=== PATIENT | male | born 1970 | race Two or more races ===

== ENCOUNTER 2023-08-17 05:54 | Day surgery (SDC) | payer OTHER ==
[2023-08-12 15:37] LABS: BILIRUBIN,URINE NEGATIVE (Neg); CLARITY,URINE CLOUDY (Clear); COLOR,URINE YELLOW (Yellow); GLUCOSE, URINE NEGATIVE (Neg); KETONES,URINE NEGATIVE (Neg); LEUKOCYTE ESTERASE ,URINE NEGATIVE (Neg); NITRITES, URINE NEGATIVE (Neg); OCCULT BLOOD,URINE NEGATIVE (Neg); PH,URINE 7.5 (4.8-8.0); PROTEIN,URINE NEGATIVE (Neg); UROBILINOGEN,URINE 0.2 E.U/dL (0.2-1.0)
[2023-08-12 15:40] LABS: BASOPHILS % (AUTO) 0.4 % (0-1); EOSINOPHILS # (AUTO) 0.1 X10'3 (0-0.9); EOSINOPHILS % (AUTO) 1.5 % (0-6); LYMPHOCYTES # (AUTO) 1.8 X10'3 (1.1-4.8); MEAN CORPUSCULAR HEMOGLOBIN 31.3 PG (27.0-31.0); MEAN CORPUSCULAR HGB CONC 33.5 g/dL (33.0-36.5); MEAN CORPUSCULAR VOLUME 93.4 FL (78-98); MEAN PLATELET VOLUME 9.9 FL (7.4-10.4); MONOCYTES # (AUTO) 0.6 X10'3 (0-0.9); MONOCYTES % (AUTO) 8.7 % (2-12); NEUTROPHILS # (AUTO) 4.6 X10'3 (1.8-7.7); NEUTROPHILS % (AUTO) 64.4 % (42-75); PRE OP HEMATOCRIT 43.6 % (42.0-52.0); PRE OP HEMOGLOBIN 14.6 g/dL (14.0-17.9); PRE OP PLATELET COUNT 165 X10'3 (140-440); PRE OP WHITE BLOOD COUNT 7.2 10'3 (4.8-10.8); RED BLOOD COUNT 4.67 X10'6 (4.70-6.10); RED CELL DISTRIBUTION WIDTH 12.7 % (11.5-14.5)
[2023-08-12 15:42] LABS: UA COLLECTION TYPE VOIDED
[2023-08-12 15:52] LABS: APTT 28 SECONDS (22-32); PROTHROMBIN TIME 10.5 SECONDS (9.0-12.0)
[2023-08-12 15:54] LABS: ALBUMIN 3.8 G/DL (3.4-5.0); ALBUMIN/GLOBULIN RATIO 0.9 (1.1-1.5); ALKALINE PHOSPHATASE 81 IU/L (46-116); BLOOD UREA NITROGEN 20 MG/DL (7-18); BUN/CREATININE RATIO 28.2 (10.0-20.0); CALCIUM 8.8 MG/DL (8.5-10.1); CHLORIDE 107 MMOL/L (99-107); CREATININE 0.71 MG/DL (0.60-1.10); PRE OP ALT 37 U/L (30-65); PRE OP ANION GAP 8 (8-16); PRE OP AST 22 U/L (10-37); PRE OP GLUCOSE 112 MG/DL (70-104); PRE OP POTASSIUM 3.9 MMOL/L (3.4-5.1); PRE OP SODIUM 144 MMOL/L (135-145); TOTAL CARBON DIOXIDE 28.8 MMOL/L (24-32); TOTAL PROTEIN 7.9 G/DL (6.4-8.2); eGFR > 90 ML/MIN
[2023-08-12 15:57] LABS: AMORPHOUS PHOSPHATES 4+; BACTERIA,URINE NONE SEEN /HPF (Neg)
[2023-08-12 16:00] LABS: RBC,URINE 0-2 /HPF (0-2); SPERM FEW /HPF (NEGATIVE); SQUAMOUS EPITHELIAL CELL,UR FEW /LPF (FEW); WBC,URINE 0-4 /HPF (0-4)
[~2023-08-17] VITALS: Ht 162.6 cm; Wt 60.1 kg
[2023-08-17] VITALS (23 sets, daily range): BP systolic 90–114; BP diastolic 57–79; PULSE 54–81; RESP 13–18; TEMP 98; O2SAT 95–100
[~2023-08-17 05:54] MED LIST: NO HOME MEDS; cefazolin 2gm/D5W 100mL 100 ML IV ONE; famotidine 20mg tablet PO ONE; ringers solution, lacted 1,000 ML IV SCH
[2023-08-17] MEDS ORDERED: sevoflurane 250ml liquid IH ONE (06:52)
[2023-08-17] MEDS ORDERED: cloNIDine hcl/PF 100mcg/ml inj ONE (06:52)
[2023-08-17] MEDS ORDERED: fentaNYL/PF 50MCG/1 ML 2ML syringe ONE (06:53)
[2023-08-17] MEDS ORDERED: MIDAZolam 1 MG/ML 5ML VIAL ONE (06:54)
[2023-08-17] MEDS ORDERED: dexamethasone sod phosphate 4mg/ml inj. ONE (06:55)
[2023-08-17] MEDS ORDERED: propofol inj 20 ML IV ONE (07:22)
[2023-08-17] MEDS ORDERED: rocuronium 10mg/ml inj IV ONE (07:23)
[2023-08-17] MEDS ORDERED: LIDOcaine 1%/PF 5ML 10 MG/ML VIAL ONE (07:23)
[2023-08-17] MEDS ORDERED: ROPIVAcaine 0.5% (5mg/ml) 30ml vial ONE (07:30)
[2023-08-17] MEDS ORDERED: labetalol 20mg/4ml (5mg/ml) syringe IV PRN ×2 (07:50→10:50)
[2023-08-17] MEDS ORDERED: ringers solution, lacted 1,000 ML IV SCH (07:50)
[2023-08-17] MEDS ORDERED: proCHLORperazine 10 MG/2 ml inj IV PRN (07:50)
[2023-08-17] MEDS ORDERED: morphine 4 MG/ML inj SYRINge IV PRN (07:50)
[2023-08-17] MEDS ORDERED: morphine 2 MG/ML inj. syringe IV PRN (07:50)
[2023-08-17] MEDS ORDERED: ondansetron/PF 4mg/2ml inj IV PRN (07:50)
[2023-08-17] MEDS ORDERED: meperidine/PF 25mg/ml syringe IV PRN ×3 (07:50)
[2023-08-17] MEDS ORDERED: enalaprilat dihydrate 2.5mg/2ml vial IV PRN (07:50)
[2023-08-17] MEDS ORDERED: ondansetron/PF 4mg/2ml inj ONE (08:55)
[2023-08-17] MEDS ORDERED: hydrALAZINE 20mg/ml inj. IV PRN (10:50)
== END 2023-08-17 12:38 | disposition home or self-care (01) ==
LOC: PAS 05:54
PROVIDERS: ATTEND Specialist
DX: M75.121 Complete rotator cuff tear or rupture of right shoulder, not specified as traumatic (principal); M75.41 Impingement syndrome of right shoulder; M75.21 Bicipital tendinitis, right shoulder; G89.18 Other acute postprocedural pain; F41.9 Anxiety disorder, unspecified; K21.9 Gastro-esophageal reflux disease without esophagitis; I20.9 Angina pectoris, unspecified; I25.2 Old myocardial infarction; Z98.890 Other specified postprocedural states; Z88.8 Allergy status to other drugs, medicaments and biological substances
CPT/HCPCS: 29826; 29827; 29828; 36415; 64415; 71046; 80053; 81001; 82948; 85025; 85610; 85730; 86885; 86900; 86901; 93005; C1713; J0690; J0735; J1100; J2250; J2405; J2704; J2710; J2795; J3010; J3490; J7120; Z7506; Z7508; Z7512; A4565; A4618; A6449; A7000